=== PATIENT | male | born 2000 | race Caucasian/White ===

== ENCOUNTER 2025-04-21 18:15 | Emergency (ER) | payer BC, SELFPAY ==
[2025-04-21 18:32] VITALS: BP 128/77; PULSE 75; RESP 16; TEMP 37.2; O2SAT 100
--- NOTE | 2025-04-21 19:09 | ED_ITS ---
HPI - Dental/Oral General Chief complaint: Dental/Oral Stated complaint: DENTAL PAIN Time Seen by Provider: 04/21/25 18:40 Source: patient and RN notes reviewed Mode of arrival: ambulatory Limitations: no limitations History of Present Illness HPI Narrative: 25-year-old male presents Express Care complaining of dental pain and swelling x5 days. Patient believes his wisdom tooth in his left lower jaw is infected. Patient also reports having exudate coming he from the area. Patient says he is in between dentist is trying to find a new one. Patient reports swelling and pain to the left jaw. Difficulty breathing or difficulty swallowing. Patient says it is painful at times to eat. Patient denies any pain or swelling under his tongue. Denies any fevers, body aches, chills. Teeth map: 2 1. Third molar Related Data Allergies Allergy/AdvReac Type Severity Reaction Status Date / Time No Known Allergies Allergy Verified 04/21/25 18:55 Review of Systems 2 Review of Systems: CONSTITUTIONAL: Denies fever, chills, or sweats. EYES: Denies visual changes, redness, or discharge. ENT: Denies rhinorrhea, congestion, sore throat, or otalgia. MOUTH: POSITIVE FOR DENTAL PAIN AND SWELLING CARDIOVASCULAR: Denies chest pain, palpitations, or edema. RESPIRATORY: Denies cough or dyspnea. GASTROINTESTINAL: Denies abdominal pain, nausea, vomiting, or diarrhea. GENITOURINARY: Denies dysuria or hematuria. SKIN: Denies rash or itching. MUSCULOSKELETAL: Denies back pain, joint pain, or myalgia. NEUROLOGIC: Denies headache, numbness, or weakness. PSYCHIATRIC: Denies anxiety or depression. All other systems reviewed are negative, except as documented in HPI. PMFSH Comments At the time of my signature, I reviewed and agree with the nursing past medical, surgical, social, and family history. There is no relevant family history pertinent to the patient complaint. Exam 2 Narrative: GENERAL: This is a well-nourished, well-developed adult, in no apparent distress. They are non ill-appearing, nontoxic appearing. HEAD: normocephalic, atraumatic. EYES: Sclera clear/white. Conjunctiva normal. Vision is grossly intact. Extraocular movements intact EARS: External ears normal, Hearing grossly intact. NOSE: External nose normal with no obvious nasal discharge, nasal turbinates without redness, no rhinorrhea. THROAT: Mucous membranes moist, posterior pharynx clear, without erythema or swelling. Uvula midline. OROPHARYNX: Dental decay is present. Gingivitis near the 3rd molar on the left lower jaw. This area of erythema and swelling to the left lower jaw old near the 3rd molar. Third molar appears impacted. No area of fluctuance or induration. No Pain or swelling under the tongue. Tongue is normal. No exudate. NECK: Neck supple, non-tender without lymphadenopathy, masses or thyromegaly. CARDIOVASCULAR: Regular rate and rhythm RESPIRATORY: Respiratory rate normal, respiratory effort nonlabored, no respiratory distress SKIN: warm, Dry, intact with no suspicious lesions or rash, good texture and turgor. NEURO: awake, alert, and oriented to person, place and time. There were no obvious focal neurologic abnormalities. EXTREMITIES: No joint tenderness, effusion, or edema noted. Course Course Emergency Course: Portions of this record may have been created with voice recognition software Level of Care: Express Care Visit Vital Signs Vital signs: Vital Signs Temperature 98.9 F 04/21/25 18:32 Pulse Rate 75 04/21/25 18:32 Respiratory Rate 16 04/21/25 18:32 Blood Pressure 128/77 04/21/25 18:32 Pulse Oximetry 100 04/21/25 18:32 Temperature 98.9 F 04/21/25 18:32 Pulse Rate 75 04/21/25 18:32 Respiratory Rate 16 04/21/25 18:32 Blood Pressure 128/77 04/21/25 18:32 Pulse Oximetry 100 04/21/25 18:32 Reviewed MDM - Dental/Oral MDM Narrative Medical decision making narrative: Is possible patient might be developing a dental abscess. Will treat empirically with Augmentin. Will prescribe viscous lidocaine as needed for pain. Gave patient a list of dentist advised close follow-up with thumb for further evaluation and management. Discussed physical exam findings. Advised supportive measures and signs/symptoms to go to the ER. Pt is appropriate for outpt treatment and f/u. Differential Diagnosis Differential diagnosis: Likely gingival abscess, dental caries and dental abscess Critical Care Time Critical Care Time Critical Care Time: No Discharge Plan Discharge Clinical Impression: Dental infection Patient Disposition: Home Condition: Stable Instructions: Antibiotic Form, Dental Abscess (ED) Additional Instructions: Take the antibiotics as directed. You may alternate Tylenol and ibuprofen as needed for pain. You may use viscous lidocaine as needed for pain in your mouth. Use a Q-tip and apply directly to the affected area. [place] your teeth and floss at least 2 times a day. You may use mouthwash after each brushing as well. Follow-up with dentist next week. If you developed developed worsening swelling, fevers, difficulty swallowing or breathing, difficulty opening your jaw, swelling or pain under the tongue, or any other concerns please go to the ER immediately. Patient Language: Ukrainian Prescriptions: New lidocaine HCl [Lidocaine Viscous] 2 % solution 1 applic mucous membrane TID PRN (Reason: pain) Qty: 1 0RF amoxicillin-pot clavulanate 875-125 mg tablet 1 tablet PO Q12H 10 Days Qty: 20 0RF Follow-up/Referrals: PHYSICIAN,SENIOR GRADUATE ADVISOR [Primary Care Provider] - Time of Disposition: 18:55
== END 2025-04-21 19:00 | disposition home or self-care (01) ==
DX: K04.7 Periapical abscess without sinus (principal)
CPT/HCPCS: 99203; G0463